=== PATIENT | female | born 1945 | race Caucasian/White ===

== ENCOUNTER 2017-08-08 10:24 | Emergency (ER) | payer MEDICARE, OTHER ==
[~2017-08-08] VITALS: Ht 154.9 cm; Wt 72.0 kg
[2017-08-08 10:30] VITALS: BP 164/88; PULSE 95; RESP 18; TEMP 98.1; O2SAT 93
[2017-08-08] MEDS ORDERED: OMEP40CA2 PO (10:46)
[2017-08-08] MEDS ORDERED: ATEN50TA PO (10:46)
[2017-08-08] MEDS ORDERED: cholesterol pill PO (10:46)
[2017-08-08] MEDS ORDERED: AMIT10TA6 PO (10:46)
[2017-08-08] MEDS ORDERED: RESP: ALBUTEROL 2.5 MG/IPRATROPIUM 0.5 MG NEB (SCH) NEB ONE (11:15)
--- NOTE | 2017-08-08 11:47 | RADRPT ---
EXAM DATE/TIME: 08/08/2017 11:28 [place] COMPARISON: No previous studies available for comparison. INDICATIONS : Cough. MEDICAL HISTORY : Hypertension. Hypercholesterolemia. Reflux SURGICAL HISTORY : None. ENCOUNTER: Initial ACUITY: 2 days PAIN SCORE: 0/10 LOCATION: Bilateral chest FINDINGS: PA and lateral views of the chest demonstrate the lungs to be symmetrically aerated without evidence of mass, infiltrate or effusion. The cardiomediastinal contours are unremarkable. Dextroscoliosis of the dorsal spine with associated multilevel degenerative spurring. No fracture. CONCLUSION: No acute cardiopulmonary process to explain current clinical symptoms. Antonio Gonzalez MD on August 08, 2017 at 11:38 Board Certified Radiologist. This report was verified electronically.
[2017-08-08] MEDS ORDERED: VENTAER INH (12:33)
[2017-08-08] MEDS ORDERED: ZITHTAB PO (12:33)
--- NOTE | 2017-08-08 12:33 | PD ---
HPI Chief Complaint: Cold / Flu Symptoms Time Seen by Provider: 10:37 Travel History International Travel<30 days: No Contact w/Intl Traveler<30days: No Traveled to known affect area: No History of Present Illness HPI This 71-year-old female is complaining of cough and congestion. She has been sick for several days. She has not had fever or myalgias. She was a smoker in the past but that was many years ago. She has not been diagnosed with COPD. She has had pneumonia in the past. She has no history of heart disease. [facility]LY [facility] Past Medical History High Cholesterol: Yes GERD: Yes Hypertension: Yes Tetanus Vaccination: Unknown Influenza Vaccination: Yes Past Surgical History Eye Surgery: Yes (bilat cataracts) Social History Alcohol Use: No Tobacco Use: No Substance Use: No Allergies-Medications (Allergen,Severity, Reaction): Coded Allergies: No Known Allergies (Unverified , 08/08/17) Reported Meds & Prescriptions Reported Meds & Active Scripts Active Reported [cholesterol pill] 1 Tab PO DAILY Atenolol 50 Mg Tab 50 Mg PO DAILY Amitriptyline (Amitriptyline HCl) 10 Mg Tab 10 Mg PO HS Omeprazole 40 Mg Cap 40 Mg PO DAILY Review of Systems General / Constitutional: No: Fever, Chills Eyes: No: Diploplia, Blurred Vision HENT: No: Headaches Cardiovascular: No: Chest Pain or Discomfort Respiratory: Positive: Cough, Shortness of Breath Gastrointestinal: No: Nausea, Vomiting Genitourinary: No: Urgency, Dysuria Skin: No Rash Neurologic: No: Weakness Physical Exam Narrative GENERAL: Well-developed female SKIN: Focused skin assessment warm/dry. HEAD: Atraumatic. Normocephalic. EYES: Pupils equal and round. No scleral icterus. No injection or drainage. ENT: No nasal bleeding or discharge. Mucous membranes pink and moist. NECK: Trachea midline. No JVD. CARDIOVASCULAR: Regular rate and rhythm. No murmur appreciated. RESPIRATORY: No accessory muscle use. Clear to auscultation. There is an occasional wheeze which clears with cough breath sounds equal bilaterally. GASTROINTESTINAL: Abdomen soft, non-tender, nondistended. Hepatic and splenic margins not palpable. MUSCULOSKELETAL: No obvious deformities. No clubbing. No cyanosis. No edema. NEUROLOGICAL: Awake and alert. No obvious cranial nerve deficits. Motor grossly within normal limits. Normal speech. PSYCHIATRIC: Appropriate mood and affect; insight and judgment normal. Data Data Last Documented VS Vital Signs Date Time Temp Pulse Resp B/P (MAP) Pulse Ox O2 Delivery O2 Flow Rate FiO2 08/08/17 10:30 98.1 95 18 164/88 (113) 93 Orders Orders Chest, Pa & Lat (08/08/17 11:11) Albuterol-Ipratropium Neb (Duoneb Neb) (08/08/17 11:15) MDM Medical Decision Making Medical Screen Exam Complete: Yes Emergency Medical Condition: Yes Medical Record Reviewed: Yes Differential Diagnosis Differential includes pneumonia, bronchitis, COPD Narrative Course Chest x-ray is negative for infiltrate. She was given a nebulizer treatment which helped her congestion. She will be released with prescription for Zithromax and albuterol Diagnosis Primary Impression: Acute bronchitis Scripts Albuterol 18 GM Inh (Ventolin Hfa 18 GM Inh) 90 Mcg/Act Aer 2 PUFF INH Q4-6H Y for SHORTNESS OF BREATH, #1 INHALER 0 Refills Prov: Tico Santamaria MD 08/08/17 Azithromycin (Zithromax Z-Shreyas) 250 Mg Dspk 250 MG PO DIRECTED for Infection, #1 DSPK 0 Refills 500 MG (2 tabs) day 1, then 1 tab days 2-5. Prov: Tico Santamaria MD 08/08/17 Disposition: 01 DISCHARGE HOME Condition: Stable Tico Santamaria MD Aug 08, 2017 12:33
[2017-08-08 12:45] VITALS: BP 119/69
== END 2017-08-08 12:48 | disposition home or self-care (01) ==
LOC: PHED 10:24
DX: J20.9 Acute bronchitis, unspecified (principal); E78.00 Pure hypercholesterolemia, unspecified; K21.9 Gastro-esophageal reflux disease without esophagitis; I10 Essential (primary) hypertension; Z79.899 Other long term (current) drug therapy
CPT/HCPCS: 71046; 94664; 99283